=== PATIENT | female | born 1950 | race Caucasian/White ===

== ENCOUNTER → 2016-07-07 | Outpatient (CLI) | payer MEDICARE, OTHER ==
[2006-05-08 05:50] VITALS: TEMP 98
== END ==
LOC: MC.RAD 11:28
DX: Z12.31 Encounter for screening mammogram for malignant neoplasm of breast (principal)

== ENCOUNTER 2017-12-26 10:33 | Day surgery (SDC) | payer MEDICARE, OTHER ==
[~2017-12-26] VITALS: Ht 160 cm; Wt 54.6 kg
[2017-12-26] MEDS ORDERED: ADVIL200 MG PO (11:45)
[2017-12-26] MEDS ORDERED: CLARITIN 1010 MG/TAB PO (11:45)
[2017-12-26 11:46] VITALS: BP 127/66; PULSE 79; TEMP 98.1
[2017-12-26] MEDS ORDERED: PATANOL OPHTHALM5 ML OD (11:46)
[2017-12-26] MEDS ORDERED: NORCO 325 MG-51 TAB PO (14:42)
[2017-12-26] MEDS ORDERED: MOTRIN 600600 MG/TAB PO (14:43)
[2017-12-26 15:00] VITALS: BP 137/64; PULSE 80; TEMP 98.3
[2017-12-26 15:15] VITALS: BP 148/63; PULSE 80
[2017-12-26 15:30] VITALS: BP 138/68; PULSE 74
[2017-12-26 15:45] VITALS: BP 158/78; PULSE 89
[2017-12-26 16:00] VITALS: BP 151/67; PULSE 94
== END 2017-12-26 16:40 | disposition home or self-care (01) ==
LOC: SDCO 10:33
DX: L08.89 Other specified local infections of the skin and subcutaneous tissue (principal); M19.90 Unspecified osteoarthritis, unspecified site; E78.00 Pure hypercholesterolemia, unspecified; M85.80 Other specified disorders of bone density and structure, unspecified site; J30.2 Other seasonal allergic rhinitis; Z82.49 Family history of ischemic heart disease and other diseases of the circulatory system
CPT/HCPCS: J0690; J1100; J1170; J2405; J2704; J3010; J7120